=== PATIENT | male | born 1960 ===

== ENCOUNTER 2017-03-15 07:25 | Day surgery (SDC) | payer OTHER ==
[2017-03-15 07:44] VITALS: BMI 34.2
[2017-03-15 08:04] VITALS: TEMP 97.1
[2017-03-15] MEDS ORDERED: Lactated Ringer's 500 ML IV ONE (09:18)
[2017-03-15] MEDS ORDERED: Propofol 10 mg/ml Inj (20 ML) ONE ×3 (09:20→09:33)
--- NOTE | 2017-03-15 09:22 | CP.SDSHP ---
Same Day Surgery H & P - History Proposed Procedure: EGD/colonoscopy Pre-Op Diagnosis: GERD, screening - Previous Medical/Surgical History Cardiac: Hypertension, ASHD/CAD - Allergies Allergies: Allergies shrimp Allergy (Verified 03/15/17 07:44) ANAPHYLAXIS - Physical Exam General Appearance: NAD Vital Signs: Vital Signs 03/15/17 07:50 Temperature 97.1 F L Pulse Rate 68 Respiratory 17 Rate Blood Pressure 128/82 O2 Sat by Pulse 97 Oximetry Mental Status: Alert & Oriented x3 Neuro: WNL Heart: WNL Lungs: WNL GI: WNL - {Optional Preform as Required} Abdomen: WNL - Impression Pt. Evaluated Today:Candidate for Anesthesia & Procedure: Yes - Date & Time Date: 03/15/17 Time: 09:22 Short Stay Discharge - Short Stay Discharge Admitting Diagnosis/Reason for Visit: GERD / SCREENING Disposition: HOME/ ROUTINE
[2017-03-15 10:09] VITALS: O2SAT 98
[2017-03-15 11:09] VITALS: BP 124/70; PULSE 68; RESP 14
== END 2017-03-15 11:05 | disposition home or self-care (01) ==
LOC: C.ENDO 07:25
PROVIDERS: ATTEND Internal Medicine Gastroenterology
DX: K29.70 Gastritis, unspecified, without bleeding (principal); K62.1 Rectal polyp; B96.81 Helicobacter pylori [H. pylori] as the cause of diseases classified elsewhere